=== PATIENT | male | born 1975 | race Caucasian/White ===

== ENCOUNTER 2019-01-07 08:30 | Emergency (ER) | payer OTHER ==
[2019-01-07 08:43] VITALS: BP 137/91
[2019-01-07] MEDS ORDERED: DEXAMETHASONE 10 MG/ML VIAL PO STA (08:55)
--- NOTE | 2019-01-07 08:57 | ED Physician Documentation ---
PD HPI URI - Stated complaint Stated Complaint: CONGESTION/COUGH - Chief complaint Chief Complaint: Resp - History obtained from History obtained from: Patient - History of Present Illness Timing - onset: How many days ago (3) Timing duration: Days (3) Timing details: Gradual onset, Still present Associated symptoms: Chills, Sweats, Nasal congestion, Rhinorrhea, Sore throat, Dry cough Contributing factors: Sick contact Worsened by: Breathing Similar symptoms before: Diagnosis (pneumonia) Recently seen: Not recently seen - Additional information Additional information: 43-year-old male has developed a cough and congestion 3 days ago and he has had coughing paroxysms chills and sweats. He has not had vomiting. He does use an inhaler and has one at home does not use it unless he is sick. Review of Systems Constitutional: reports: Fever, Chills, Myalgias, Fatigue Eyes: denies: Decreased vision Ears: denies: Ear pain Nose: reports: Rhinorrhea / runny nose, Congestion Throat: reports: Sore throat Cardiac: denies: Chest pain / pressure, Palpitations Respiratory: reports: Dyspnea, Cough, Wheezing GI: denies: Abdominal Pain, Nausea, Vomiting : denies: Dysuria PD PAST MEDICAL HISTORY - Past Medical History Respiratory: Pneumonia GI: Diverticulitis Psych: ADD/ADHD - Past Surgical History General: Appendectomy - Present Medications Home Medications: Ambulatory Orders Medication Instructions Recorded Confirmed Amox/Clav 875/125 [Augmentin] 1 each PO Q12H #20 tablet 01/07/19 Dextroamphetamine/Amphetamine 20 mg PO DAILY 01/07/19 01/07/19 [Adderall Xr 20 mg Capsule] - Allergies Allergies/Adverse Reactions: Allergies Allergy/AdvReac Type Severity Reaction Status Date / Time No Known Drug Allergies Allergy Verified 01/07/19 08:43 - Social History Does the pt smoke?: No Smoking Status: Never smoker Does the pt drink ETOH?: No Does the pt have substance abuse?: No PD ED PE NORMAL - Vitals Vital signs reviewed: Yes (hypertensive ) - General General: Alert and oriented X 3, No acute distress, Well developed/nourished - HEENT HEENT: Atraumatic, PERRL, EOMI, Other (right TM is inflamed along the umbo with rounding of the umbo. The left is clear. ) - Neck Neck: Supple, no meningeal sign, No bony TTP - Cardiac Cardiac: RRR, No murmur - Respiratory Respiratory: No respiratory distress, Other (wheezes and rhonchi scattered symetrically consistent with transmitted upper airway sounds. ) - Abdomen Abdomen: Soft, Non tender - Derm Derm: Normal color, Warm and dry, No rash - Extremities Extremities: No deformity, No edema - Neuro Neuro: Alert and oriented X 3, web site developer 2-12 intact, No motor deficit, No sensory deficit, Normal speech Eye Opening: Spontaneous Motor: Obeys Commands Verbal: Oriented GCS Score: 15 - Psych Psych: Normal mood, Normal affect Results - Vitals Vitals: Vital Signs - 24 hr 01/07/19 08:41 Temperature 36.6 C Heart Rate 85 Respiratory 20 Rate Blood Pressure 137/91 H O2 Saturation 97 Oxygen O2 Source Room air PD MEDICAL DECISION MAKING - ED course Complexity details: considered differential, d/w patient ED course: 43-year-old male with cough and congestion has right otitis media is administered dexamethasone 10 mg orally and we will put him on some Augmentin. Departure - Departure Disposition: 01 Home, Self Care Clinical Impression: Otitis media Qualifiers: Otitis media type: suppurative Chronicity: acute Laterality: right Recurrence: not specified as recurrent Spontaneous tympanic membrane rupture: without spontaneous rupture Qualified Code(s): H66.001 - Acute suppurative otitis media without spontaneous rupture of ear drum, right ear Condition: Stable Instructions: ED Otitis Media Acute Adult Follow-Up: [facility] [Provider Group] Prescriptions: Amox/Clav 875/125 [Augmentin] 1 each PO Q12H #20 tablet
== END 2019-01-07 09:15 | disposition home or self-care (01) ==
LOC: ED 08:30
DX: H66.001 Acute suppurative otitis media without spontaneous rupture of ear drum, right ear (principal); R05 Cough; R09.81 Nasal congestion
CPT/HCPCS: 99283

== ENCOUNTER 2020-12-14 10:18 | Day surgery (SDC) | payer OTHER ==
[~2020-12-14 10:18] MED LIST: cefTRIAXone 2 GM VIAL ONE
[2020-12-14] MEDS ORDERED: LACTATED RINGERS 1,000 ML IV ONE ×2 (10:55→16:30)
--- NOTE | 2020-12-14 11:24 | ANESTHESIA ---
Pre-Anesthesia VS, & Labs - Diagnosis L clavicle fracture - Procedure ORIF L clavicle Vital Signs: Temp Pulse Resp BP Pulse Ox 36.6 C 76 18 136/95 H 97 12/14/20 10:30 12/14/20 10:30 12/14/20 10:30 12/14/20 10:30 12/14/20 10:30 Height: 5 ft 7 in Weight (kg): 81.65 kg Body Mass Index: 28.1 BMI Classification: Overweight - NPO >8 hours - Lab Results Lab results reviewed: Yes Home Medications and Allergies Home Medications: Ambulatory Orders Dextroamphetamine/Amphetamine [Adderall 10 mg Tablet] 10 mg PO BID 12/12/20 Dextroamphetamine/Amphetamine [Adderall Xr 10 mg Capsule] 10 mg PO BID 12/12/20 oxyCODONE [Roxicodone] 5 mg PO Q4-6H 12/12/20 Dextroamphetamine/Amphetamine [Adderall 10 mg Tablet] 10 mg PO BID 12/12/20 Dextroamphetamine/Amphetamine [Adderall Xr 10 mg Capsule] 10 mg PO BID 12/12/20 oxyCODONE [Roxicodone] 5 mg PO Q4-6H 12/12/20 Allergies/Adverse Reactions: Allergies Allergy/AdvReac Type Severity Reaction Status Date / Time No Known Drug Allergies Allergy Verified 12/12/20 10:58 Anes History & Medical History - Anesthetic History Anesthesia Complications: reports: No previous complications Family history of Anesthesia Complications: Denies Family history of Malignant Hyperthermia: Denies - Medical History Cardiovascular: reports: None Pulmonary: reports: None Gastrointestinal: reports: None Urinary: reports: None Musculoskeletal: reports: Other Endocrine/Autoimmune: reports: None Skin: reports: None Smoking Status: Current some day smoker Psychosocial: reports: Alcohol (social) History of Cancer?: No - Surgical History General: Appendectomy Exam General: Alert, Oriented x3, Cooperative Dental: WNL Mouth Openin Fingerbreadth Neck Mobility: Normal Mallampati classification: II Thyromental Distance: 4-6 cm Respiratory: Lungs clear, Normal breath sounds, No respiratory distress Cardiovascular: Regular rate Neurological: Normal speech Mental/Cognitive Status: Alert/Oriented X3, Normal for patient Cognitive Status: Within normal limits Plan Anesthesia Type: General Consent for Procedure(s) Verified and Reviewed: Yes Code Status: Attempt Resuscitation ASA classification: 2-Mild systemic disease Is this case an emergency?: No
[2020-12-14] MEDS ORDERED: ROPIVACAINE 0.5% PF 20 ML AMPULE ONE (12:00)
[2020-12-14] MEDS ORDERED: fentaNYL 100 MCG/2 ML VIAL ONE ×2 (12:04→13:52)
[2020-12-14] MEDS ORDERED: MIDAZOLAM 2 MG/2 ML VIAL ONE (12:04)
[2020-12-14] MEDS ORDERED: ROCURONIUM 50 MG/5 ML VIAL ONE ×2 (12:12→13:49)
[2020-12-14] MEDS ORDERED: LIDOCAINE-MPF 2% 5 ML VIAL ONE (12:12)
[2020-12-14] MEDS ORDERED: PROPOFOL 200 MG/20 ML VIAL IVP ONE (12:12)
[2020-12-14] MEDS ORDERED: METOPROLOL 5 MG/5 ML VIAL IVP ONE (13:09)
[2020-12-14] MEDS ORDERED: ACETAMINOPHEN 1,000 MG/100 ML 100 ML IV ONE (13:10)
[2020-12-14] MEDS ORDERED: diphenhydrAMINE INJ 50 MG/ML VIAL ONE (13:12)
[2020-12-14] MEDS ORDERED: HYDROCORTISONE SUCCINATE 100 MG/2 ML VIAL ONE (13:12)
[2020-12-14] MEDS ORDERED: fentaNYL 100 MCG/2 ML VIAL IVP PRN (13:48)
[2020-12-14] MEDS ORDERED: METOCLOPRAMIDE 10 MG/2 ML VIAL IVP PRN (13:48)
[2020-12-14] MEDS ORDERED: MORPHINE 2 MG/ML CARPUJECT IVP PRN (13:48)
[2020-12-14] MEDS ORDERED: ONDANSETRON 4 MG/2 ML VIAL IVP PRN ×2 (13:48→16:28)
[2020-12-14] MEDS ORDERED: HYDROmorphone 0.5 MG/0.5 ML SYRINGE IVP PRN (13:48)
[2020-12-14] MEDS ORDERED: NALOXONE 0.4 MG/ML VIAL IVP PRN (13:48)
[2020-12-14] MEDS ORDERED: ePHEDrine 50 MG/ML VIAL IVP PRN (13:48)
[2020-12-14] MEDS ORDERED: ATROPINE ABBOJECT 1 MG/10 ML SYRINGE IVP PRN (13:48)
[2020-12-14] MEDS ORDERED: FAMOTIDINE 20 MG/2 ML VIAL IVP STA (13:49)
[2020-12-14] MEDS ORDERED: ONDANSETRON 4 MG/2 ML VIAL ONE (13:49)
[2020-12-14] MEDS ORDERED: LACTATED RINGERS 1,000 ML IV SCH (14:00)
[2020-12-14] MEDS ORDERED: FAMOTIDINE 20 MG/2 ML VIAL IVP ONE ×2 (14:22→15:00)
[2020-12-14] MEDS ORDERED: HYDROmorphone 1 MG/ML CARPUJECT ONE (15:42)
[2020-12-14] MEDS ORDERED: BUPIVACAINE 0.25% PF 10 ML VIAL SUBQ ONE (15:43)
[2020-12-14] MEDS ORDERED: BUPIVACAINE 0.25% PF 10 ML VIAL ONE (15:52)
[2020-12-14] MEDS ORDERED: NEOSTIGMINE 1 MG/1 ML 10 ML MDV ONE (16:05)
[2020-12-14] MEDS ORDERED: GLYCOPYRROLATE 1 MG/5 ML VIAL ONE (16:05)
[2020-12-14] MEDS ORDERED: oxyCODONE 5 MG TABLET PO PRN (16:28)
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
--- NOTE | 2020-12-14 17:13 | XRAY Report ---
PROCEDURE: OR C-Arm Procedure INDICATIONS: ORIF LEFT CLAVICLE TECHNIQUE: Intraoperative and immediate postoperative evaluation documenting sequence of placement of a superior clavicular fixation plate establishing normal alignment across the fracture plane at the distal clavicle, near the junction of the middle and distal thirds. Proximal and distal cortical scre ws are present maintaining position at termination of the study. COMPARISON: None. FINDINGS: Normal alignment established at completion of the open reduction and operative fixation procedure. IMPRESSION: Normal alignment established after ORIF. Reviewed by: Tim Hall MD on 12/14/2020 5:11 PM PST Approved by: Tim Hall MD on 12/14/2020 5:11 PM PST Station ID: [id number]
[2020-12-14 17:18] LABS: BASOPHILS % (AUTO) 0.3 %; HCT - HEMATOCRIT 39.5 % (42.0-52.0); LYMPHOCYTES # (AUTO) 0.4 10^3/uL (1.5-3.5); MEAN CORPUSCULAR HEMOGLOBIN 32.3 pg (27.0-31.0); MEAN CORPUSCULAR HGB CONC 32.9 g/dL (32.0-36.0); MEAN PLATELET VOLUME 9.5 fL (7.4-11.4); MONOCYTES # (AUTO) 0.2 10^3/uL (0.0-1.0); MONOCYTES % (AUTO) 2.5 %; NEUTROPHILS # (AUTO) 5.4 10^3/uL (1.5-6.6); PLT - PLATELET COUNT 172 10^3/uL (130-450); RED BLOOD COUNT 4.03 10^6/uL (4.70-6.10); RED CELL DISTRIBUTION WIDTH 13.7 % (12.0-15.0)
[2020-12-14 17:24] LABS: CALCIUM 8.9 mg/dL (8.5-10.3); CREATININE 0.7 mg/dL (0.6-1.2); POTASSIUM 4.9 mmol/L (3.5-5.0)
[2020-12-14 17:32] VITALS: BP 138/96
--- NOTE | 2020-12-14 17:38 | ANESTHESIA POST OP EVALUATION ---
Anesthesia Post Eval - Post Anesthesia Eval Vitals: Last Vital Signs Temp 36.7 C 12/14/20 17:15 Pulse 97 12/14/20 17:15 Resp 16 12/14/20 17:15 BP 141/93 H 12/14/20 17:15 Pulse Ox 97 12/14/20 17:15 CV Function Including HR & BP: positive: Stable (Patient had episode of SVT in PACU. See note.) Pain Control: positive: Satisfactory Nausea & Vomiting: positive: Negative Mental Status: positive: Baseline Respiratory Status: Airway Patent Hydration Status: Satisfactory Anesthesia Complications: positive: None - Other Details/Therapies Other Details/Therapies: In the PACU patient developed frequent PACs and had an approximate 25-30 beat run of SVT. Patient was asymptomatic and converted without intervention. Labs and an EKG were ordered with no significant abnormalities. Case was discussed with Dr. Stanley and Dr. Edge. Patient to be discharged on Atenolol and recommend follow up with PCP for possible halter monitor and/or cardiology referral.
== END 2020-12-14 10:19 | disposition home or self-care (01) ==
LOC: SDS 10:18
PROVIDERS: ATTEND Orthopaedic Surgery
DX: S42.032A Displaced fracture of lateral end of left clavicle, initial encounter for closed fracture (principal); I47.1 Supraventricular tachycardia; I10 Essential (primary) hypertension; F17.210 Nicotine dependence, cigarettes, uncomplicated; E66.3 Overweight; Z68.28 Body mass index [BMI] 28.0-28.9, adult; L50.9 Urticaria, unspecified
CPT/HCPCS: 23515; 80048; 85025; 93005; J0131; J1170; J1200; J7120

== ENCOUNTER 2021-08-31 14:08 | Outpatient (CLI) | payer OTHER ==
[2021-08-31 14:53] VITALS: BP 135/78
--- NOTE | 2021-08-31 14:53 | SLEEP CARE CONSULTATION ---
Information from patient questionnaire entered by Miranda Jones. I have reviewed and concur with the information entered by Miranda Jones. This document represents the service I personally performed and the decisions made by me, Miguelina Rea ARNP. History of Present Illness Service Date and Time: 08/31/2021 1408 Reason for Visit: New patient Chief Complaint: reports: Unrefreshed sleep, Snoring, Excessive daytime sleepiness, Observed pauses in breathing, Frequent awakenings at night Date of Onset: Years Usual bedtime: 2300 Time it takes to fall asleep: 15-30 minutes Snores at night: Yes Observed to quit breathing while asleep: Yes Sleeps alone due to snoring: No Number of times waking at night: 2-3 times Reasons for waking at night: reports: Pain, Bathroom, Other (unknown reason) Toss, Turn, or Twitch while sleeping: Yes Recalls having dreams: Yes Feels refreshed in the morning: No Morning headache: No Sleepy or fatigued during the day: Yes Ever fallen asleep while driving: No Takes day naps: No Dreams during day naps: Yes Prior sleep studies: Yes Year and Where: [facility] [place] Additional HPI information: I had the pleasure of seeing JAZIEL GEIGER today regarding the possibility of him having a sleep disorder. His current complaints are frequent night awakening, observed pauses in breathing, snoring and unrefreshed sleep. 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 He was emailed a copy of his results. He states it said he has mild sleep apnea but he has not met with any provider about his results. - Parasomnia Symptoms Ever been unable to move upon waking from sleep: No Walks in sleep: No Talks in sleep: No Ever acted out dreams in sleep: No Ever felt weak in the knees when startled or emotional: No Bothered by creepy, crawly, restless sensations in legs: No Problems with memory or concentration: Yes (recently, both) Subjective Initial [place] Sleepiness Scale score: 12 (in 2020) Past Medical History Past Medical History: reports: Anxiety, GERD, Attention deficit Social History The patient's occupation is a AM. Patient is and lives in [place]. Have you smoked in the past 12 months: Yes Cigarettes per day (20/pack): 20 Years of smokin Smoking Pack Years: 12.0 Alcohol use: Yes Alcohol amount and frequency: 1/day Caffeine use: Yes Caffeine amount and frequency: occasionally Family History Family history of sleep disordered breathing: No Family Hx Sleep Apnea: Father: Snoring Allergies and Home Medications Drug allergies reviewed: Yes (NKDA) Home medication list reviewed: Yes Allergy and home medication list: Adderall 10 mg Adderall XR 10 mg Review of Systems Cardiovascular: reports: leg or foot swelling. denies: high blood pressure Neurological: reports: disorientation. denies: headaches Psychiatric: reports: Attention Deficit Hyperactivity Ear/Nose/Throat: reports: nasal congestion, sinus problems, wisdom teeth removed Musculoskeletal: reports: joint pain, joint swelling Immunologic: reports: sneezing Physical Exam Blood Pressure: 135/78 Cuff size: wrist Heart Rate: 98 O2 Saturation: 91 Height: 5 ft 7 in Weight: 186 lb Body Mass Index: 29.1 BMI Classification: Overweight Heart: regular rate and rhythm Lungs: clear bilaterally Impression and Plan 1. Obstructive Sleep Apnea-Hypopnea Syndrome, unknown. He has a study done in July,. He does not have a copy with him. We will try to obtain from [facility] Records. Patient would like to try to use the CPAP. I discussed setting him up with a CPAP as soon as I see his records to verify diagnosis and severity. Patient states after our discussion about different modalities for sleep apnea treatment that he would like to try the CPAP machine. * Obtain copy of his sleep study to review * Attempt to lose weight. * Avoid alcohol consumption near bedtime. * The patient is again cautioned about driving until sleepiness completely resolves. * Return one month after CPAP obtained. I will assess response to therapy and compliance at that time. Counseling Topics: Weight loss health impact Visit Type: In Office Time Spent with Patient (minutes): 30 Provider Statement: I spent 100% of the Face to Face Visit with the patient with greater than 50% spent counseling the patient and coordination of care.
== END 2021-08-31 14:09 | disposition home or self-care (01) ==
LOC: SC 14:08
PROVIDERS: ATTEND Nurse Practitioner Family
DX: G47.33 Obstructive sleep apnea (adult) (pediatric) (principal)
CPT/HCPCS: 99203; 99212